=== PATIENT | male | born 1955 | race Caucasian/White ===

== ENCOUNTER 2016-11-04 10:54 | Emergency (ER) | payer OTHER ==
[~2016-11-04] VITALS: Ht 188 cm; Wt 100.0 kg
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
[2016-11-04] MEDS ORDERED: 0.9% Sodium Chloride 1,000 ML IV ONE (11:03)
[2016-11-04] MEDS ORDERED: Ondansetron 2 mg/mL 2 mL Inj IVPUSH PRN (11:05)
[2016-11-04 11:23] LABS: BASOPHILS % (AUTO) 0.8 % (0-3); EOSINOPHILS % (AUTO) 1.6 % (0-5); MONOCYTES % (AUTO) 9.6 % (4-12); Mean Corpuscular Hemoglobin 30.4 pg (27.0-35.0); Mean Corpuscular Volume 88.1 fL (81-100); NEUTROPHILS % (AUTO) 64.2 % (40-74); Platelet Count 240 bil/L (150-400)
[2016-11-04 11:26] LABS: INR 0.95 ratio
[2016-11-04] MEDS: HYDROmorphone 0.5 mg/0.5 mL iSecure Syringe IVPUSH PRN ×3 (11:34→14:05)
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
[2016-11-04] MEDS ORDERED: HYDROmorphone 1 mg/mL Inj IVPUSH ONE (12:35)
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
[2016-11-04] MEDS ORDERED: oxyCODONE-Acetamin 10-325 mg Tablet PO ONE (14:05)
[2016-11-04] MEDS ORDERED: DOCU250C2 PO (14:09)
[2016-11-04] MEDS ORDERED: OXYC-466 PO (14:09)
[2016-11-04 14:32] VITALS: BP 122/77; PULSE 62; RESP 16; O2SAT 98
== END 2016-11-04 14:10 | disposition home or self-care (01) ==
LOC: SED 10:54
DX: S14.109A Unspecified injury at unspecified level of cervical spinal cord, initial encounter (principal); V86.59XA Driver of other special all-terrain or other off-road motor vehicle injured in nontraffic accident, initial encounter; Y93.89 Activity, other specified; Y92.89 Other specified places as the place of occurrence of the external cause; Y99.8 Other external cause status; M48.02 Spinal stenosis, cervical region
CPT/HCPCS: 36415; 70450; 71260; 72125; 72141; 74177; 80053; 85025; 85610; 85730; 86850; 93005; 96361; 96374; 96375; 96376; 99285; G0480; J1170; J2405; J7030; Q9967